=== PATIENT | female | born 2005 | race Caucasian/White ===

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

== ENCOUNTER → 2025-01-15 | Outpatient (CLI) | payer MEDICAID, SELFPAY ==
--- NOTE | 2025-01-15 17:42 | MRI_ITS ---
EXAM: MRI orbit, face and neck with and without contrast. CLINICAL HISTORY: 5 month history of facial swelling. COMPARISON: CT facial bones 12/17/2024 TECHNIQUE: Multiplanar multisequence MRI of the orbit, face and neck with and without contrast. 17 cc IV Clariscan was administered. FINDINGS: Lymph nodes: No cervical lymphadenopathy by size, number or morphologic criteria. Small nonspecific lymph nodes are scattered throughout the neck. Aerodigestive tract: The oral cavity is partially obscured by artifact from dental amalgam. The nasal cavities, naso-oropharynx, pharyngeal mucosal space, laryngeal structures and infraglottic trachea are within normal limits. Major salivary glands: Within normal limits. Thyroid gland: Within normal limits. Carotid space: Patent bilateral extracranial carotid and jugular systems. Intracranial contents: Imaged portions within normal limits. Paranasal sinuses, middle ears, mastoids: Mild paranasal sinus mucosal thickening.. Orbits: No abnormal enhancement, extraconal or intraconal mass. Lacrimal duct and glands are patent within normal limits. Soft tissue: Pngm-[id number]-[id number]-right anterior frontal scalp soft tissue swelling 1 and enhancement (series 15, image 16). On the right, the soft tissue swelling and enhancement extends through the periorbital region (series 15, image 8). No extension into the intraconal or extraconal space. . Bones: No suspicious osseous lesions in the imaged calvarium, skull base and spine. Normal cervicothoracic alignment. No significant spondylotic changes. Temporomandibular joints are maintained. MRI/Orbit Face Neck W/WO Contrast IMPRESSION: Nonspecific dcavi-wqrmurk-wsdm-left anterior facial periorbital soft tissue swe lling and enhancement. Findings may be secondary to a chronic infectious/inflammatory process. Recommend further evaluation wit h dermatologic consult. Reading Location: [facility]
== END | disposition home or self-care (01) ==
LOC: MRI 17:12
PROVIDERS: Referring Provider Ophthalmology; Visit Provider Ophthalmology
DX: H05.10 Unspecified chronic inflammatory disorders of orbit (principal); R60.0 Localized edema; D64.9 Anemia, unspecified; R80.9 Proteinuria, unspecified
CPT/HCPCS: 70543; A9575

== ENCOUNTER → 2025-01-16 | Outpatient (CLI) | payer MEDICAID, SELFPAY ==
[2025-01-16 15:32] LABS: Absolute Lymphocyte Count 1.81 X10^3/uL (0.83-4.51); Absolute Neutrophil Count 3.6 X10^3/uL (2.0-7.7); Basophil# 0.03 X10^3/uL; Basophil% 0.5 % (0-1); Eosinophils% 1.6 % (0-5); Hematocrit 28.5 % (37-47); Hemoglobin 8.7 g/dL (12.0-15.0); Lymphocyte # 1.81 X10^3/ul (0.83-4.51); Lymphocyte % 29.1 % (19-41); Mean Corp Hgb Conc 30.5 g/dL (32-36); Mean Corpuscular Hgb 21.2 pg (27.0-32.0); Mean Corpuscular Volume 69.5 fL (81-99); Mean Platelet Vol. 10.2 fl (6.2-12.0); Monocyte# 0.63 X10^3/uL; Monocyte% 10.1 % (0-10); NRBC Flagged by Analyzer 0 % (0-5); Neutrophil # 3.62 X10^3/uL (2.7-7.7); Neutrophil % 58.4 % (47-70); Platelet Count 269 K/mm3 (150-450); RBC Distribution Width CV 15.4 % (11.6-14.6); RBC Distribution Width SD 38.3 fl (35.1-43.9); RET-HE 18.6 pg (30-35); Reticulocyte Count 1.09 % (0.5-1.5); White Blood Count 6.2 K/mm3 (4.4-11.0)
[2025-01-16 16:03] LABS: Anion Gap 10 (5-15); BUN 11 mg/dL (4-19); BUN/Creat Ratio 12.5 RATIO (10-20); Calcium,Total 9.6 mg/dL (7.6-11.0); Carbon Dioxide 23.7 mmol/L (21.0-32.0); Chloride 106 mmol/L (98-108); Creatinine, Serum 0.87 mg/dL (0.70-1.20); EST Glomerular Filtration Rate 98 (>60); FOLATES,SERUM (FOLIC ACID) 7.94 ng/mL (4.60-34.80); Ferritin 6 ng/mL (22-378); Glucose 93 mg/dL (70-99); Potassium 3.8 mmol/L (3.3-5.1); Sodium Level 139 mmol/L (133-145); Vitamin B12 379 pg/mL (180-914)
[2025-01-16 17:13] LABS: Iron 14 ug/dL (50-170); Iron Binding Capacity,Unsat 456 ug/dL (228-428); LDH 138 U/L (84-246)
[2025-01-16 17:19] LABS: Iron Binding Capacity,Total 470 ug/dL (250-450)
[2025-01-20 07:07] LABS: Endomysial Antibody IgA Negative (Negative); Immunoglobulin A 92 mg/dL (87-352); t-Transglutaminase IgA <2 U/mL (0-3)
== END | disposition home or self-care (01) ==
LOC: LAB 14:42
PROVIDERS: PCP Family Medicine; Referring Provider Family Medicine; Visit Provider Family Medicine
DX: D50.9 Iron deficiency anemia, unspecified (principal)
CPT/HCPCS: 36415; 80048; 82607; 82728; 82746; 82784; 83516; 83540; 83550; 83615; 85025; 85045; 86255